=== PATIENT | male | born 1970 | race Caucasian/White ===

== ENCOUNTER → 2023-10-15 15:14 | Outpatient (REF) | payer BC, SELFPAY | LOC: HWRAD 15:14 | PROVIDERS: ATTENDING PHYSICIAN Family Medicine | DX: R51.9 Headache, unspecified (principal) | CPT/HCPCS: 70450 ==

== ENCOUNTER → 2023-12-25 11:16 | Outpatient (REF) | payer BC, SELFPAY | LOC: DHSLP 11:16 | PROVIDERS: ATTENDING PHYSICIAN Family Medicine | DX: G47.33 Obstructive sleep apnea (adult) (pediatric) (principal) | CPT/HCPCS: 95806 ==